=== PATIENT | female | born 1945 | race Two or more races ===

== ENCOUNTER 2023-02-12 20:52 | Emergency (ER) | payer MEDICARE, MEDICAID ==
[~2023-02-12] VITALS: Ht 157.5 cm; Wt 46.4 kg
[2023-02-12 20:58] VITALS: BP 130/60
[2023-02-12] MEDS ORDERED: ASPI-1450 PO (21:05)
[2023-02-12 21:51] LABS: BASOPHILS % (AUTO) 0.3 % (0.0-2.0); EOSINOPHILS % (AUTO) 0 % (1.0-6.0); HEMATOCRIT 24.8 % (36-46); LYMPHOCYTES # (AUTO) 1.3 K/uL (1.0-4.8); LYMPHOCYTES % (AUTO) 9.7 % (22.0-44.0); MEAN CORPUSCULAR HEMOGLOBIN 29.2 pg (26.0-34.0); MEAN CORPUSCULAR HGB CONC 32.1 G/dL (31.0-37.0); MEAN CORPUSCULAR VOLUME 91 fL (80-100); MONOCYTES # (AUTO) 0.7 K/uL (0.1-1.0); MONOCYTES % (AUTO) 5.1 % (2.0-9.0); NEUTROPHILS # (AUTO) 11.1 K/uL (1.8-7.7); NEUTROPHILS % (AUTO) 84.9 % (40.0-70.0); PLATELET COUNT (AUTO) 376 K/uL (150-450); RED BLOOD CELL COUNT(AUTO) 2.73 MIL/uL (4.00-5.20); RED CELL DISTRIBUTION WIDTH 20.3 % (11.5-14.5)
[2023-02-12 21:55] LABS: CALCIUM, TOTAL 8.8 mg/dL (8.8-10.5); CREATININE 3.13 mg/dL (0.60-1.30)
[2023-02-12 22:01] LABS: BILIRUBIN,TOTAL 0.2 mg/dL (0.1-1.0); TOTAL PROTEIN, SERUM 7.5 g/dL (6.4-8.2)
[2023-02-12] MEDS ORDERED: ACETAMINOPHEN 325 MG TABLET PO ONE (23:30)
== END 2023-02-13 03:48 | disposition home or self-care (01) ==
LOC: EMS 20:52
DX: S00.83XA Contusion of other part of head, initial encounter (principal); I10 Essential (primary) hypertension; E03.9 Hypothyroidism, unspecified; W19.XXXA Unspecified fall, initial encounter; Y93.89 Activity, other specified; Y92.89 Other specified places as the place of occurrence of the external cause; Y99.8 Other external cause status
CPT/HCPCS: 70450; 72125; 80053; 85025; 99284